=== PATIENT | female | born 1990 | race Caucasian/White ===

== ENCOUNTER → 2017-08-20 | Outpatient (REF) | payer OTHER | LOC: M SFHCLERA 15:56 | DX: R35.0 Frequency of micturition (principal) ==

== ENCOUNTER 2018-07-19 17:02 | Outpatient (CLI) | payer OTHER ==
[~2018-07-19] VITALS: Ht 165.1 cm; Wt 86.5 kg
[2018-07-19 18:01] LABS: HEMATOCRIT 35.4 % (36.0-47.0); HEMOGLOBIN 11.5 g/dl (12.0-15.5); MEAN CORPUSCULAR HEMOGLOBIN 31.1 pg (27.0-33.0); MEAN CORPUSCULAR HGB CONC 32.5 g/dl (32.0-36.5); MEAN CORPUSCULAR VOLUME 95.7 fl (80.0-96.0); PLATELET COUNT, AUTOMATED 126 10^3/uL (150-450); WHITE BLOOD COUNT 5.8 10^3/uL (4.0-10.0)
[2018-07-19] MEDS ORDERED: PRENTAB9 PO (18:03)
[2018-07-19] MEDS ORDERED: ZOFR4TAB16 PO (18:03)
[2018-07-19] MEDS ORDERED: ZOLO25TA PO (18:03)
[2018-07-19] MEDS ORDERED: ANTA500C PO (18:03)
[2018-07-19] MEDS ORDERED: MAPA500T2 PO (18:03)
[2018-07-19 18:20] LABS: ALT/SGPT 16 U/L (12-78); BILIRUBIN,TOTAL 0.3 MG/DL (0.2-1.0); GLOMERULAR FILTRATION RATE > 60.0 (>60); LDH LACTATE DEHYDROGENASE 144 U/L (84-246); URIC ACID 4.1 MG/DL (2.6-6.0)
[2018-07-19 18:26] LABS: CREATININE,RANDOM URINE 54.3 MG/DL; TOTAL PROTEIN,RANDOM URINE 12.6 MG/DL (0.0-12.0)
[2018-07-19] MEDS ORDERED: BETAMETHASONE SOLUSPAN 6MG/ML INJ 5ML (J0702) IM SCH (20:00)
--- NOTE | 2018-07-19 20:32 | IPNPDOC ---
Text Note Date of Service The patient was seen on 07/19/18. NOTE 27 y/o at 34+2 for Nausea, Vomiting X2 noted just today and also wors ening CALIXTO (very mild, but worse-first started having CALIXTO's 1 wk ago) and floaters in her vision. Preg Hx signif for Pre-E X3 at 35, 36, 36 wks and eclampsia with 1st and 3rd preg. No LOF/VB. Pos FM. Has been voiding at normal intervals. VSSAF, only one barely elevated BP, diastolic 91, all other BP's nl No clonus DTR's 2+ (nl) Labs 1700 Ur P/C 0.23 (baseline 24 hr UP 217) Hct 35.4 Plt 126 ( Plt 167, Plt 150) Cr 0.6 AST 12 ALT 16 LDH 144 Uric 4.1 Us done for growth, BPP, dopplers: All WNL, healthy fetus measuring 34+3, nl MATT, nl placenta, nl dopplers, BPP 8/8 Given 12 mg IM Beta first dose at 1999 a/p: Concerning Hx for Pre-E/Eclampsia and new sx's. No evid Pre-E now, no elevated BP's at clinic visits prior to today and has an appt tomorrow afternoon at [address] Ji. Plan for repeat serum labs tomorrow AM first thing at [facility] (CBC, Pre-E pnl, 24 hr UP) and then appt at 1500 when can go over lab results. Also tomorrow night Beta 12 mg IM at 2000 (second dose) on L&D, scheduled. Strict rtn precautions for Pre-e sx's. Sessions Christina HARTLEY I+O Christina MILAN I+O Laboratory Tests 07/19/18 17:49 Red Blood Count 3.70 L, Mean Corpuscular Volume 95.7, Mean Corpuscular Hemoglobin 31.1, Mean Corpuscular Hemoglobin Concent 32.5, Red Cell Distribution Width 13.8, Aspartate Amino Transf (AST/SGOT) 12, Alanine Aminotransferase (ALT/SGPT) 16, Lactate Dehydrogenase 144, Total Bilirubin 0.3, Uric Acid 4.1 SESSIONSTEA MD Jul 19, 2018 20:32
--- NOTE | 2018-07-19 21:59 | REPVR ---
EXAM: US First Trimester, Transabdominal EXAM DATE/TIME: 07/19/18 (8:28pm) CLINICAL HISTORY: 27 year old female. LMP or gestational age (weeks): 34 weeks 2 days. Pre-eclampsia. Check growth, BPP, possible IUGR. TECHNIQUE: Real-time transabdominal obstetrical ultrasound of the maternal pelvis and a first trimester , less than 14 weeks 0 days, with image documentation. COMPARISON: No relevant prior studies available FINDINGS: The LMP is reported to be: 11/21/17 A single live intrauterine is identified, approx. 34 weeks 3 days composite gestational age. Close correlation with the menstrual history is noted. Measured age parameters are as follows: BPD 86 mm 34 weeks 6 days HC 308 mm 34 weeks 2 days AC 303 mm 34 weeks 2 days FL 67 mm 34 weeks 2 days heart rate is recorded at 141 bpm. The fetus lies vertex. The placenta is manufacturing recruiter, with no evidence of previa nor abruption. The placenta is Grade II. The cervix is closed, measuring 4.3 cm in length. The EFBW = 2405 gms (5 lb 4 oz) Umbilical cord S/D ratio = 3.36 (normal range). Amniotic fluid volume is adequate, with the MATT = 14.7 cm (at the 50th percentile for this age). The deepest fluid pocket = 5.9 cm. The spine, stomach, kidneys, urinary bladder, liver, anterior abdominal wall, and extremities appear unremarkable. brain anatomy and facial profile are not well visualized. Nuchal cord not seen. 4-chamber heart anatomy, 3-vessel cord, and cord insertion are visualized. gender appears to be female. BIOPHYSICAL PROFILE (BPP) The BPP score = 8/8 points. A normal score of 2 points was obtained for: tone, movements, respirations, and MATT. heart beat is recorded at 141 bpm. The MATT = 14.7 cm. (which is at the 50th percentile for this age). The deepest fluid pocket = 5.9 cm. IMPRESSION: A single live intrauterine is identified, approx. 34 weeks 3 days gestational age. Based on this sonogram, the KRISSY = 08/27/18. heartbeat is seen. The fetus lies vertex. The placenta is posterior, with no previa noted. The cervix is closed. No gross morphological anomalies are appreciated. The BPP score = 8/8 points. Electronically signed by: Mariely Muhammad On 07/19/2018 21:58:50 PM
== END 2018-07-19 22:20 | disposition home or self-care (01) ==
LOC: M LDO 17:02
PROVIDERS: ATTEND Obstetrics & Gynecology
DX: O21.2 Late vomiting of pregnancy (principal); O99.89 Other specified diseases and conditions complicating pregnancy, childbirth and the puerperium; R51 Headache; Z87.59 Personal history of other complications of pregnancy, childbirth and the puerperium; Z3A.34 34 weeks gestation of pregnancy
CPT/HCPCS: 36415; 59025; 76811; 76819; 82247; 82565; 82570; 83615; 84156; 84450; 84460; 84550; 85027; 96372; G0378; G0463; J0702

== ENCOUNTER 2018-07-20 11:47 | Outpatient (CLI) | payer OTHER ==
[~2018-07-20] VITALS: Ht 165.1 cm; Wt 85.5 kg
[~2018-07-20 11:47] MED LIST: ANTA500C PO; MAPA500T2 PO; PRENTAB9 PO; ZOFR4TAB16 PO; ZOLO25TA PO
[2018-07-20 12:03] VITALS: BP 134/93
[2018-07-20 12:08] VITALS: BP 111/69
[2018-07-20 12:23] VITALS: BP 135/61
[2018-07-20] MEDS ORDERED: BETAMETHASONE SOLUSPAN 6MG/ML INJ 5ML (J0702) IM ONE (13:30)
--- NOTE | 2018-07-20 14:48 | HPE ---
DATE OF ADMISSION: 07/20/2018 This lady is a 27-year-old 7, para 3, abortio 3, T0, P3, A3, L3, G7, last menstrual period (LMP) is 11/21/2017, estimated date of confinement (EDC) by 8-week 4-day ultrasound was 08/28/2018. She is 34 and 4 weeks of gestation, and she is here for monitoring because of preeclampsia and elevated blood pressures and seen in the office today with a blood pressure of 142/98 and 150/92. No evidence of right upper quadrant pain or visual disturbances and no edema. She was seen in labor and delivery 07/19/2018 with similar issues. Lab work was all normal. Protein creatinine ratio is 0.23. Uric acid was normal, and she was collecting a 24-hour urine. Her risk factors are she has delivery times three, preeclampsia times three with induction of labor, has some significant anxiety on Zoloft, and is presently on ASA 81 mg. PAST HISTORY: In 07/23 at 36 weeks, vaginal delivery, female. 09/20, induction of labor for preeclampsia, baby ended up in intensive care unit (NICU). 05/24 at 12 weeks, spontaneous with dilation and curettage (D and C). 05/22 at 36 weeks, male 7 pounds 8 ounces, induction of labor for preeclampsia. 09/17 at 35 weeks, female 6 pounds preeclampsia induction of labor, was on mag sulfate and had a bit of a hemorrhage. No blood transfusion. 01/16 at 8 weeks, spontaneous with D and C. 08/16, 5 weeks spontaneous , no D and C. Examination today, she does not appear in any acute distress. Symphysis fundus height is 34. heart rate is normal. Category 1 strip. Nontender uterus. Four quadrant bowel sounds are noted. Her blood pressures while here resting are 134/93, 111/69, and 135/61. She has a category 1 strip with no contractions. She is normocephalic, atraumatic. Neck: Full range of motions. Pupils equal and reactive to light. Distal pulses symmetric. No evidence of deep venous thrombosis (DVT), pulmonary embolus (PE), or superficial phlebitis. Her reflexes are normal. No pedal edema noted. She has no wheezes or rhonchi. No costovertebral angle (CVA) tenderness. Appropriate SF height. She has no rashes, lesions, or tattoos. No pruritus. No arthralgia, myalgia, joint pain. No complaint of cough, wheezes, shortness of breath, or dyspnea on exertion. Not bleeding. Neuro complete. No incontinency, urgency, or frequency. No nausea, vomiting, diarrhea, or constipation. No diabetic issues. She has no sexually transmitted diseases (STDs) or abnormal Pap smears. Past medical and surgical unremarkable. Family history is noncontributory, and she does not smoke, drink, abuse drugs. She is to a soldier. No domestic violence. Her blood work yesterday was completely normal with a protein creatinine ratio which is normal. Today, her blood work was repeated and appears to be normal. Her blood pressures here are in the low range, not even midrange pressures and no severe range pressures. We are planning on monitoring her for several hours with her blood pressure, give her a second dose of betamethasone, and she will be discharged for followup in the office for blood pressure check tomorrow morning. In summary, we have a 34 and 4 with history of preeclampsia in three deliveries, presently in stable condition.
--- NOTE | 2018-07-20 16:12 | IPN ---
DATE: 07/20/2018 This lady was sent over from the office because of history of pre E with her last three babies. She had extensive blood work done today and yesterday. All was within normal limits. Her blood pressures were not in the severe or midrange levels. She had a good reactive category 1 strip. She is still collecting her 24-hour urine, which she will place to [place]. She has an appointment with the clinic tomorrow morning. We gave her discharge instructions including headaches, right upper quadrant pain, nausea, vomiting, edema, decreased movement to notify us immediately. The patient was discharged undelivered.
== END 2018-07-20 15:45 | disposition home or self-care (01) ==
LOC: M LDO 11:47
PROVIDERS: ATTEND Obstetrics & Gynecology
DX: O26.93 Pregnancy related conditions, unspecified, third trimester (principal); R03.0 Elevated blood-pressure reading, without diagnosis of hypertension; R51 Headache; Z3A.34 34 weeks gestation of pregnancy
CPT/HCPCS: 59025; 96372; G0378; G0463; J0702

== ENCOUNTER 2018-07-24 21:17 | Inpatient (IN) | payer OTHER ==
[~2018-07-24] VITALS: Ht 165.1 cm; Wt 85.8 kg
[2018-07-24] MEDS ORDERED: PENICILLIN G POTASSIUM IV 5 MU in D5W MINI-BAG PLUS 100 ML IV STA (21:32)
[2018-07-24 21:39] VITALS: BP 132/85
[2018-07-24] MEDS ORDERED: MAG Sulf (L&D) 4 GM/100 ML 4 GM in APPROPRIATE DILUENT 1 EA IV ONE (21:45)
[2018-07-24] MEDS ORDERED: CALCIUM GLUCONATE 1,000 MG in D5W MINI-BAG PLUS 100 ML IV PRN (21:45)
[2018-07-24 22:26] LABS: HEMATOCRIT 34.5 % (36.0-47.0); HEMOGLOBIN 11.6 g/dl (12.0-15.5); MEAN CORPUSCULAR HGB CONC 33.6 g/dl (32.0-36.5); PLATELET COUNT, AUTOMATED 128 10^3/uL (150-450); RED BLOOD COUNT 3.63 10^6/uL (4.00-5.40); WHITE BLOOD COUNT 9.3 10^3/uL (4.0-10.0)
[2018-07-24 22:44] VITALS: BP 136/81
[2018-07-24 22:50] LABS: ALT/SGPT 14 U/L (12-78); BILIRUBIN,TOTAL 0.2 MG/DL (0.2-1.0); CREATININE FOR GFR 0.66 MG/DL (0.55-1.30); GLOMERULAR FILTRATION RATE > 60.0 (>60); LDH LACTATE DEHYDROGENASE 284 U/L (84-246); URIC ACID 5.1 MG/DL (2.6-6.0)
[2018-07-24] MEDS ORDERED: miSOPROStol 25 MCG 1/4 TAB (S0191) As Ordered ONE (23:07)
[2018-07-24] MEDS ORDERED: miSOPROStol 25 MCG 1/4 TAB (S0191) PV ONE (23:15)
[2018-07-24] MEDS: LR 1,000 ML IV SCH (23:22)
[2018-07-24] MEDS ORDERED: BUTORPHANOL 2 MG/ML INJ (J0595) IV PRN (23:30)
[2018-07-24] MEDS ORDERED: ACETAMINOPHEN 500 MG TAB PO PRN (23:30)
[2018-07-24] MEDS ORDERED: diphenhydrAMINE INJ 50MG/ML VIAL (J1200) IV ONE (23:30)
[2018-07-24] MEDS ORDERED: miSOPROStol 50 MCG 1/2 TAB (S0191) PO SCH (23:30)
[2018-07-24] MEDS ORDERED: PROMETHAZINE INJ 25 MG/ML VIAL (J2550) IV PRN (23:30)
[2018-07-24] MEDS ORDERED: RANI1TAB6 PO (23:44)
[2018-07-24] MEDS ORDERED: FAMOTIDINE 20 MG TAB PO ONE (23:45)
[2018-07-25] VITALS (46 sets, daily range): BP systolic 98–150; BP diastolic 59–88
--- NOTE | 2018-07-25 00:02 | HPEPDOC ---
Obstetrical History & Physical General Date of Admission Jul 24, 2018 at 21:17 History of Present Illness Gale is a 27yo with SIUP at 35w0d by lmp c/w 8wk u/s who presents for induction of labor for pre-eclampsia WITH severe features. Dr. Saavedra and I discussed plan of care this afternoon and arrived at the decision that IOL is now medically necessary given Gale's significant history as well as recent symptoms. Gale has had pre-eclampsia with all 3 of her pregnancies and eclamptic seizures with two of them (most recently July 2016)- the deliveries were at 35wk, 36wk and 36wk. She has been extremely closely monitored over the past week given that she was seen in triage on 07/19 and endorsed a headache that started one week prior and worsening. She has continued to have this headache regardless of tylenol, rest and hydration. Significantly, she endorses having a similar headache prior to her eclamptic seizure in her most recent . She notes that she "feels the same way" that she did prior to that eclamptic seizure. She began having floaters in her vision a week ago mostly at the periphery, but now endorses that they are more persistent and have halos, that she sees them in her central vision even when her eyes are closed. At clinic appt on 07/20, she had a mild range bp. She had baseline 24hr UP 217mg in early . On 07/20, urine protein:creatinine was 0.232. Other labs have all been normal (plt 120's but stable). She was seen again in triage over the weekend and on record review had a severe range bp noted- patient endorsed that it was when she had just arrived and was sitting up- the rest of her bp's were wnl and they are wnl today. She received a course of betamethasone on 07/19-. Dr. Saavedra had a long discussion with Gale over the phone earlier today and gave the recommendation for IOL given the constellation of signs/symptoms, which the patient is amenable to. Chief Complaint: Induction of labor Information Provided By: Patient Care Care: Good Care Dating Final EDC: Aug 28, 2018 Final EDC by: LMP, 1st trimester (US) Antepartum Course Diagnos(e)s History of pre-eclampsia x3 (eclamptic seizures with two of the pregnancies), anxiety Height (inches): 65 Pre- weight (lbs.): 155 Admission Weight (lbs.): 189 Change in Weight (lbs.): 44 Past Medical History Past Obstetrical History : Past Obstetrical History: Multigravida (08/16 sab, 01/16 sab with D&C, 09/17 iol severe pre-E/eclampsia/PPH (no transfusion) 6lb at 35wk F, 05/22 iol pre-E 36wk 7lb8oz M, 05/24 sab D&C, 07/23 36wk iol severe pre-E/eclampsia 5lb5oz 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 Past Medical History Medical History anxiety Surgical History: Dilatation and Curettage, [place] teeth, Other (right ankle) Family History Significant Family History: No pertinent family hx Social History Marital Status: Family situation: Spouse/partner home Psychosocial History: Anxiety * Smoker: former Smoker (smoked for 7 years quit Dec 2016) Alcohol: Denies Drugs: denies Imunizations Tdap status: current Influenza Status: current Allergies Coded Allergies: No Known Allergies (Unverified , 07/19/18) Medications Scheduled Multivitamins/ ( 27-0.8 mg) 1 Tab Tab, 1 TAB PO DAILY Sertraline Hcl (Zoloft) 25 Mg Tab, 25 MG PO DAILY Scheduled PRN Acetaminophen (Mapap) 500 Mg Tab, 1,000 MG PO for PAIN OR FEVER Ondansetron HCl (Zofran) 4 Mg Tab, 4 MG PO Q6-8HP PRN for nausea/vomiting Miscellaneous Medications Ranitidine HCl (Ranitidine [address]) 150 Mg Tab, 1 TAB PO Physical Examination Physical Examination GENERAL: Alert and oriented times three. ABDOMEN: Gravid and non-tender to touch. FETUS: Is vertex (VTX) by TAUS EXTREMITIES: No edema Laboratory Data 24H LABS Laboratory Tests 2 07/24/18 21:22: Serology Scanned Report Hepatitis B Testing 07/24/18 22:14: Nucleated Red Blood Cells % (auto) 0.0, Glomerular Filtration Rate > 60.0, Creatinine 0.66, Aspartate Amino Transf (AST/SGOT) 26, Alanine Aminotransferase (ALT/SGPT) 14, Lactate Dehydrogenase 284H, Total Bilirubin 0.2, Uric Acid 5.1 CBC/BMP Laboratory Tests 3/18/19 22:14 Red Blood Count 3.63 L, Mean Corpuscular Volume 95.0, Mean Corpuscular Hemoglobin 32.0, Mean Corpuscular Hemoglobin Concent 33.6, Red Cell Distribution Width 13.9, Aspartate Amino Transf (AST/SGOT) 26, Alanine Aminotransferase (ALT/SGPT) 14, Lactate Dehydrogenase 284 H, Total Bilirubin 0.2, Uric Acid 5.1 Pertinent Laboratoy Data Blood Type: A+ RBC Antibody Screen: Negative HIV: Negative Hepatitis B: Negative Hepatitis C: Unknown Rapid Plasma Reagin: Nonreactive Rubella: Immune Varicella: Immune Chlamydia/Gonorrhea: Negative Group B Streptococcus: Unknown Glucose Tolerance Test: 106 Anatomy Ultrasound Ultrasound Date: Apr 25, 2018 Placenta Location: Posterior Normal Anatomy: Yes Placenta Previa: No Steroid Therapy Steroid Therapy: Yes Date #1: Jul 19, 2018 Date #2: Jul 20, 2018 Vaginal Examination Dilation: 1cm Effacement: other (thick) Station: -3 Cervical Consistency: Firm Cervical Position: Posterior Presentation: Cephalic presentation Assessment Heart Rate (FHR): 140 Variability: Moderate Accelerations: Positive Decelerations: None Tocometer Contractions: No Assessment/Plan Assessment Gale is a 27yo with SIUP at 35w0d by lmp c/w 8wk u/s who presents for induction of labor for pre-eclampsia WITH severe features based on unremitting headache and vision changes in the setting of history significant for three prior pregnancies complicated by pre-E at 35/36/36wk, two of those pregnancies also further complicated by eclamptic seizures. Patient states these symptoms are similar to symptoms that occurred just prior to seizures in her other pregnancies- record review reveals she did not have abnormal lab values at that time either. Currently, normotensive. Cat I FHRT with no ctx. SCE 2/thick/high, marcelo bulb placed with 40cc NS and 25mcg cytotec PV. Cephalic by JANINA. GBS unknown. Steroid complete 07/19-. PMhx only otherwise complicated by anxiety. Plan Admit and orient. Counseled and consented regarding IOL (cytotec, marcelo bulb, pitocin, AROM) and Mg for pre-E Diet: clear liquids Group B Streptococcus (GBS) unknown and pre-term, PCN per protocol IV MgSO4 for seizure prevention, marcelo catheter since on bedrest with MgSO4. Neuro checks. Calcium gluconate prn. Labs and intravenous (IV) per unit protocol. Lactated Ringers (LR): Bolus 500 mL, then at 125 mL/hr. IV benadryl 50mg for sleep, famotidine 20mg PO for GERD, tylenol 1000mg prn headache, stadol/phenergan prn for pain prior to active labor Candidate for epidural if desired in active labor Anticipate normal spontaneous delivery () MD Ester Morgan Katrina D MD Jul 24, 2018 23:34
[2018-07-25] MEDS: MAG Sulf (OBGYN) 20GM/500ML 20,000 MG in APPROPRIATE DILUENT 1 EA IV SCH ×3 (00:13→20:43)
[2018-07-25] MEDS ORDERED: OXYTOCIN DRIP 30 UNITS in APPROPRIATE DILUENT 1 EA IV SCH ×2 (07:30→23:26)
[2018-07-25] MEDS: PENICILLIN G POTASSIUM IV 2.5 MU in APPROPRIATE DILUENT 1 EA IV SCH ×4 (09:38→21:50)
[2018-07-25] MEDS: LR 1,000 ML IV SCH (09:54)
[2018-07-25] MEDS ORDERED: PROMETHAZINE INJ 25 MG/ML VIAL (J2550) IV ONE (13:15)
[2018-07-25] MEDS ORDERED: ACETAMINOPHEN TAB 650MG DOSE (2X325MG) PO ONE (14:00)
--- NOTE | 2018-07-25 16:07 | IPNPDOC ---
Text Note Date of Service The patient was seen on 07/25/18. NOTE I have been getting regular updates throughout the day. No c/o CP/SOB. Feeling weak and frustrated she can't get out of bed. FHT Cat 1, reg ctx's, pain at 5/10 Cx 5/70/-2, membranes swept, cx stretched DTR 2+, no clonus Desires to have her epidural now, then plan on AROM. Will rpt her CBC prior. No S/S Mag toxicity. Pt states understanding of the need for the magnesium, even though she is frustrated by how she feels. Sessions MD MILAN,Christina, I+O VSChristina I+O Laboratory Tests 07/24/18 22:14 Red Blood Count 3.63 L, Mean Corpuscular Volume 95.0, Mean Corpuscular Hemoglobin 32.0, Mean Corpuscular Hemoglobin Concent 33.6, Red Cell Distribution Width 13.9, Aspartate Amino Transf (AST/SGOT) 26, Alanine Aminotransferase (ALT/SGPT) 14, Lactate Dehydrogenase 284 H, Total Bilirubin 0.2, Uric Acid 5.1 Vital Signs Date Time Temp Pulse Resp B/P (MAP) Pulse Ox O2 Delivery O2 Flow Rate FiO2 07/25/18 14:32 101 16 137/80 (99) 07/25/18 13:32 98.4 I&O- Last 24 Hours up to 6 AM 07/25/18 05:59 Intake Total 1562 ml Output Total 2100 ml Balance -538 ml SESSIONS,TEA Kern MD Jul 25, 2018 16:07
[2018-07-25 16:20] LABS: HEMATOCRIT 35.6 % (36.0-47.0); HEMOGLOBIN 11.9 g/dl (12.0-15.5); MEAN CORPUSCULAR HEMOGLOBIN 31.5 pg (27.0-33.0); MEAN CORPUSCULAR HGB CONC 33.4 g/dl (32.0-36.5); MEAN CORPUSCULAR VOLUME 94.2 fl (80.0-96.0); PLATELET COUNT, AUTOMATED 127 10^3/uL (150-450); RED BLOOD COUNT 3.78 10^6/uL (4.00-5.40); WHITE BLOOD COUNT 11.4 10^3/uL (4.0-10.0)
[2018-07-25] MEDS ORDERED: FENTANYL 2MCG/ML ROPIVACAINE 0.2% IN 0.9% NACL 100ML IVBAG As Ordered ONE (16:28)
[2018-07-25] MEDS ORDERED: LACTATED RINGER'S 1000 ML IV PRN (17:30)
[2018-07-25] MEDS ORDERED: EPIDURAL COMMENT XX SCH (17:30)
[2018-07-25] MEDS ORDERED: ONDANSETRON 4MG/2ML VIAL (J2405) IV PRN (17:30)
[2018-07-25] MEDS ORDERED: diphenhydrAMINE INJ 50MG/ML VIAL (J1200) IV PRN (17:30)
[2018-07-25] MEDS ORDERED: NALOXONE INJ 0.4 MG/1 ML VIAL (J2310) IV PRN (17:30)
[2018-07-25] MEDS ORDERED: FENTANYL/ROPIVACAINE/NACL BAG 100 ML EPIDURAL SCH (17:30)
[2018-07-25] MEDS ORDERED: REFRIGERATOR IV KEYS XX PRN (17:30)
[2018-07-25] MEDS ORDERED: EPIDURAL/PCA KEYS XX PRN (17:30)
[2018-07-25] MEDS ORDERED: ePHEDrine SULFATE 25 MG/5 ML(5MG/ML) SYRINGE IV PRN (17:30)
--- NOTE | 2018-07-25 19:21 | IPNPDOC ---
Text Note Date of Service The patient was seen on 07/25/18. NOTE Note for ~1800 NST Cat 1, pit at 20 mu/min Cx 5-6/70/-1/vtx well applied AROM with clr fluid Recheck in 2 hrs, sooner prn Sessions MD MILAN,Christina, I+O VSChristina, I+O Laboratory Tests 07/24/18 22:14 Red Blood Count 3.63 L, Mean Corpuscular Volume 95.0, Mean Corpuscular Hemoglobin 32.0, Mean Corpuscular Hemoglobin Concent 33.6, Red Cell Distribution Width 13.9, Aspartate Amino Transf (AST/SGOT) 26, Alanine Aminotransferase (A LT/SGPT) 14, Lactate Dehydrogenase 284 H, Total Bilirubin 0.2, Uric Acid 5.1 07/25/18 16:08 Red Blood Count 3.78 L, Mean Corpuscular Volume 94.2, Mean Corpuscular Hemoglobin 31.5, Mean Corpuscular Hemoglobin Concent 33.4, Red Cell Distribution Width 14.3 Vital Signs Date Time Temp Pulse Resp B/P (MAP) Pulse Ox O2 Delivery O2 Flow Rate FiO2 07/25/18 18:12 98.6 106 16 133/71 (91) I&O- Last 24 Hours up to 6 AM 07/25/18 06:00 Intake Total 1562 ml Output Total 2100 ml Balance -538 ml SESSIONS,TEA Kern MD Jul 25, 2018 19:21
[2018-07-25] MEDS ORDERED: DIBUCAINE 1% OINTMENT 30GM TOP PRN (23:30)
[2018-07-25] MEDS ORDERED: METOCLOPRAMIDE INJ 10MG/2ML VIAL (J2765) IV PRN (23:30)
[2018-07-25] MEDS ORDERED: MEASLES,MUMPS,RUBELLA VACCINE INJ (MMR-II) (90707) SC SCH (23:30)
[2018-07-25] MEDS ORDERED: miSOPROStol 200 MCG TAB (S0191) PR ONE (23:30)
[2018-07-25] MEDS ORDERED: ACETAMINOPHEN TAB 650MG DOSE (2X325MG) PO PRN (23:30)
[2018-07-25] MEDS ORDERED: RHOGAM 300 MCG (1500 IU) INJ (J2790) IM SCH (23:30)
[2018-07-25] MEDS ORDERED: CARBOPROST TROMETHAMINE 250 MCG/ML AMP IM ONE (23:30)
--- NOTE | 2018-07-25 23:51 | DNPDOC ---
[facility] Delivery Note Delivery Note DATE OF DELIVERY: [id number] PREDELIVERY DIAGNOSIS: 35 1/7 weeks' gestation and labor. POST DELIVERY DIAGNOSIS: Delivered. PROCEDURE: Spontaneous vaginal delivery [employer] BUS DRIVER: Dr. Saavedra ANESTHESIA: epidural ESTIMATED BLOOD LOSS: 900 mL. FINDINGS: 6 pound 0 ounce female , Score 8/10 DELIVERY SUMMARY: At 2230, 2 hrs from last check, feeling pressure with early's. C/C. Pushed only 3 ctx's, no delay of the vtx or both shoulders. To abd. Cord C/C by FOB. Cord blood. Placenta intact. Pit going 999. Fundus firm at first but large gush of blood noted and bimanual exam showed signif sudden atony. Bimanual massage and Hemabate 250 mcg given. Also Cytotec 1 mg DC with exam overglove. Fundus firm after a few minutes of intermittent atony. No lacs, spec exam showed intact cx and vag and per. Will give PP mag sulfate and second bag ptocin at 75 cc/hr to maintain total 125/hr. CBC, Pre-E pnl, Mag level 0600 tomorrow. TEA Otero MD, MD Jul 25, 2018 23:51
[2018-07-26] VITALS (21 sets, daily range): BP systolic 114–139; BP diastolic 59–78
[2018-07-26] MEDS ORDERED: OXYTOCIN DRIP 30 UNITS in APPROPRIATE DILUENT 1 EA IV SCH ×2
[2018-07-26 07:00] LABS: HEMATOCRIT 28.1 % (36.0-47.0); MEAN CORPUSCULAR HEMOGLOBIN 31.4 pg (27.0-33.0); MEAN CORPUSCULAR HGB CONC 32.7 g/dl (32.0-36.5); MEAN CORPUSCULAR VOLUME 95.9 fl (80.0-96.0); PLATELET COUNT, AUTOMATED 131 10^3/uL (150-450); RED BLOOD COUNT 2.93 10^6/uL (4.00-5.40); WHITE BLOOD COUNT 12.5 10^3/uL (4.0-10.0)
[2018-07-26 07:04] LABS: HEMOGLOBIN 9.2 g/dl (12.0-15.5)
--- NOTE | 2018-07-26 07:06 | IPNPDOC ---
Text Note Date of Service The patient was seen on 07/26/18. NOTE PPD1 , Pre-E with symptomatic severe features States feeling well. CALIXTO is better, as are visual issues. VB slow and nl as expected. Minimal cramping. Tolerating PO, denies N/V. Bonding and baby feeding well. DTR's 1+, present-no clonus FH U-1, firm CTAB RRR UO >200/hr Hct 28.1, Plt 131, Pre-E PNL and Mag level both pending Doing well. No S/S Mag Tox. Baby with mom in room. Keep for 24 hrs of PP Mag Sulfate. Sessions VS,Christina, I+O VSChristina I+O Laboratory Tests 07/25/18 16:08 Red Blood Count 3.78 L, Mean Corpuscular Volume 94.2, Mean Corpuscular Hemoglobin 31.5, Mean Corpuscular Hemoglobin Concent 33.4, Red Cell Distribution Width 14.3 Vital Signs Date Time Temp Pulse Resp B/P (MAP) Pulse Ox O2 Delivery O2 Flow Rate FiO2 07/26/18 02:33 111 18 137/61 (86) 07/26/18 01:34 97.6 I&O- Last 24 Hours up to 6 AM 07/26/18 06:00 Intake Total 6846.6 ml Output Total 8325 ml Balance -1478.4 ml SESSIONS,TEA Kern MD Jul 26, 2018 07:06
[2018-07-26 07:22] LABS: ALT/SGPT 7 U/L (12-78); BILIRUBIN,TOTAL 0.2 MG/DL (0.2-1.0); CREATININE FOR GFR 0.52 MG/DL (0.55-1.30); GLOMERULAR FILTRATION RATE > 60.0 (>60); LDH LACTATE DEHYDROGENASE 185 U/L (84-246); URIC ACID 3.9 MG/DL (2.6-6.0)
[2018-07-26] MEDS: DOCUSATE SODIUM 100 MG CAP PO SCH ×2 (15:05→21:23)
[2018-07-26] MEDS: PRENATAL VITAMINS CHEWABLE TABLET PO SCH (15:05)
[2018-07-26] MEDS: IBUPROFEN 800 MG TAB PO PRN (21:23)
[2018-07-27 02:32] VITALS: BP 123/65
[2018-07-27 06:19] VITALS: BP 120/67
[2018-07-27] MEDS: IBUPROFEN 800 MG TAB PO PRN (08:02)
[2018-07-27] MEDS: DOCUSATE SODIUM 100 MG CAP PO SCH (09:18)
[2018-07-27] MEDS: PRENATAL VITAMINS CHEWABLE TABLET PO SCH (09:18)
[2018-07-27 09:30] VITALS: BP 134/64
--- NOTE | 2018-07-27 09:47 | IPN ---
DATE: 07/27/2018 This lady is a 27-year-old 7, now para 4 who came in at 35 weeks for induction of labor because of pre-eclampsia with severe features. She had an epidural in place, delivered a live female infant weighing 6 pounds 0 ounces, of 8 and 10 and one and five minutes respectively. She was placed on magnesium sulfate for 24 hours as prophylaxis because of her pre-eclampsia and her previous history of pre-E with seizures. She has a short interval gestation, which she had a baby a year ago and had severe pre-E with eclamptic features. Her admitting hemoglobin was 11.6, hematocrit 34.5 and platelets were 128. day 1 hemoglobin 9.2, hematocrit 28.1 and platelets are 131. She had her magnesium sulfate discontinued at 1700 hours yesterday. Her blood pressure presently is 120/67, respirations are 18, pulse 91, temperature 98.2. She never had any significant elevated blood pressures throughout her entire stay. Her highest blood pressure was 139/77. She is presently diuresing quite well. Her total output was 7070 mL over 24-hour. She is alert, awake. No evidence of right upper quadrant pain. No visual disturbances. No floaters. No edema. She is well oriented. We discussed phlebitis, cystitis, mastitis, endometritis, cellulitis, diet, exercise pain management, perineal breast and wound care. She is hoping for discharge within the next 24 hours with medication. The rest examination is unremarkable. She is normocephalic, atraumatic. Neck: Full range of motion. Pupils equal and reactive to light. Distal pulses symmetric. No evidence of deep venous thrombosis (DVT), pulmonary embolus (PE) or superficial phlebitis. Chest is clear bilaterally at bases. No wheezes or rhonchi. Abdomen: Soft uterus 2 below. Lochia is moderate. Four quadrant bowel sounds are noted. Her reflexes are normal. Eye grounds are clear and she is considerably better since her initial admission for pre-eclamptic with severe features. In summary we have a 35-week gestation admitted for induction of labor because of severe pre-E. Planning on discharge tomorrow with medications.
[2018-07-27 10:00] VITALS: BP 134/60
--- NOTE | 2018-07-27 12:23 | DS.PDOC ---
Discharge Summary General Date of Admission Jul 24, 2018 at 21:17 Date of Discharge [id number] Discharge Summary ADMITTING DIAGNOSES: Severe Pre-E at 35 weeks DISCHARGE DIAGNOSES: Same, HOSPITAL COURSE: Admitted and induction/delivery uncomplicated, . course uncomplicated, received almost 24 hours of Magnesium Sulfate . DISCHARGE MEDICATIONS: Motrin, Lanolin, Nor DISCHARGE INSTRUCTIONS: Nothing in the vagina for 6 weeks. F/U in OBGYN clinic in 6-8 weeks, sooner with any Pre-E symptoms. Sessions Vital Signs/I&Os Vital Signs Date Time Temp Pulse Resp B/P (MAP) Pulse Ox O2 Delivery O2 Flow Rate FiO2 07/27/18 10:00 97.1 90 18 134/60 (84) 100 I&O- Last 24 Hours up to 6 AM 07/27/18 06:00 Intake Total 4128.7 ml Output Total 4095 ml Balance 33.7 ml Discharge Medications Scheduled Multivitamins/ ( 27-0.8 mg) 1 Tab Tab, 1 TAB PO DAILY, (Reported) Sertraline Hcl (Zoloft) 25 Mg Tab, 25 MG PO DAILY, (Reported) Scheduled PRN Acetaminophen (Mapap) 500 Mg Tab, 1,000 MG PO for PAIN OR FEVER, (Reported) Ondansetron HCl (Zofran) 4 Mg Tab, 4 MG PO Q6-8HP PRN for nausea/vomiting, (Reported) Miscellaneous Medications Ranitidine HCl (Ranitidine [address]) 150 Mg Tab, 1 TAB PO, (Reported) Allergies Coded Allergies: No Known Allergies (Unverified , 07/19/18) SESSIONSTEA MD Jul 27, 2018 12:23
[2018-07-27] MEDS ORDERED: MAPA500T2 PO (12:30)
[2018-07-27] MEDS ORDERED: IBUP-1022 PO (12:33)
[2018-07-27] MEDS ORDERED: COLA100C5 PO (12:33)
== END 2018-07-27 13:40 | disposition home or self-care (01) | DRG 807 ==
LOC: M LDI 21:17 → M OBS 07-26 13:32
PROVIDERS: ADMIT Obstetrics & Gynecology; ATTEND Obstetrics & Gynecology
PROC: 3E0P7GC Introduction of Other Therapeutic Substance into Female Reproductive, Via Natural or Artificial Opening (ICD-10-PCS; 2018-07-24)
PROC: 10E0XZZ Delivery of Products of Conception, External Approach (ICD-10-PCS; principal; 2018-07-25)
PROC: 10907ZC Drainage of Amniotic Fluid, Therapeutic from Products of Conception, Via Natural or Artificial Opening (ICD-10-PCS; 2018-07-25)
DX: O14.14 Severe pre-eclampsia complicating childbirth (principal); Z37.0 Single live birth; Z3A.35 35 weeks gestation of pregnancy; O75.89 Other specified complications of labor and delivery

== ENCOUNTER → 2019-01-23 | Outpatient (REF) | payer OTHER ==
[~2019-01-23] MED LIST changes: -ANTA500C PO; +CALC1CHW3 PO; +COLA100C5 PO; +IBUP-1022 PO; +RANI-356 PO
== END ==
LOC: M SFHCLERA 10:02
PROVIDERS: ATTEND Physician Assistant
DX: R10.9 Unspecified abdominal pain (principal)
CPT/HCPCS: 81002; 81025; 87086; G0463

== ENCOUNTER → 2019-02-27 | Outpatient (REF) | payer OTHER ==
[2019-02-27 14:49] LABS: APPEARANCE, URINE CLEAR (CLEAR); BACTERIA, URINE AUTO 1+ (NEGATIVE); BILIRUBIN, URINE AUTO NEGATIVE (NEGATIVE); BLOOD, URINE BLOOD NEGATIVE (NEGATIVE); COLOR, URINE STRAW (YELLOW); GLUCOSE, URINE (UA) AUTO NEGATIVE (NEGATIVE); KETONE, URINE AUTO NEGATIVE (NEGATIVE); LEUKOCYTE ESTERASE, URINE AUTO NEGATIVE (NEGATIVE); NITRITE, URINE AUTO NEGATIVE (NEGATIVE); PROTEIN, URINE AUTO NEGATIVE (NEGATIVE); RBC, URINE AUTO 0 /HPF (0-3); SPECIFIC GRAVITY URINE AUTO 1.002 (1.002-1.035); SQUAMOUS EPITHELIAL CELL UR AU 0 /HPF (0-6); UROBILINOGEN, URINE AUTO 0.2 mg/dL (0.0-2.0); WBC, URINE AUTO 0 /HPF (0-3)
== END ==
LOC: M SMT 13:27
PROVIDERS: ATTEND Nurse Practitioner Women's Health
DX: R35.0 Frequency of micturition (principal)
CPT/HCPCS: 81001; 87086; G0463